=== PATIENT | male | born 1935 | race Caucasian/White ===

== ENCOUNTER 2019-03-02 06:12 | Inpatient (IN) ==
[~2019-03-02 06:12] MED LIST: ceFAZolin 1,000 MG, Sodium Chloride IRRigation 1,000 ML IR ONE
[2019-03-02] MEDS ORDERED: Acetaminophen IV 1,000 MG/100 ML INFUS..BTL IVPB ONE (07:03)
[2019-03-02] MEDS ORDERED: Famotidine 20 MG/2 ML VIAL IVP ONE (07:03)
[2019-03-02] MEDS ORDERED: Dexamethasone 4 MG/ML VIAL ONE (07:04)
[2019-03-02] MEDS ORDERED: *HR* Succinylcholine 200 MG/10 ML VIAL IVP ONE (07:04)
[2019-03-02] MEDS ORDERED: Lidocaine -MPF 4% 5 ML AMPUL ONE (07:04)
[2019-03-02] MEDS ORDERED: *HR* FentaNYL (PF) 100 MCG/2 ML VIAL ONE ×2 (07:04→10:33)
[2019-03-02] MEDS ORDERED: *HR* Propofol 200 MG/20 ML VIAL IVP ONE (07:04)
[2019-03-02] MEDS ORDERED: Lidocaine -MPF 2% 2 ML VIAL ONE ×2 (07:04→07:18)
[2019-03-02] MEDS ORDERED: Ondansetron 4 MG/2 ML VIAL ONE (07:04)
--- NOTE | 2019-03-02 07:08 | Anesthesia Evaluation PreOp ---
Date of Encounter: 03/02/19 Time of Encounter: 07:00 - Past History Planned Operation: Rt CEA Cardiac History: HTN, Hyperlipidemia, Cardiac Surgery (CABG 1991 and 2014), Cardiac Stent (2011), Pacemaker/ICD (Biventricular ICD 2014) Pulmonary History: Denies Any Significant HX [employer] History: Other (Neuropathy LE) Other Medical History: Renal (CKD Stage 3), Diabetes Type II Anesthesia History: No Prior Anesthetic Complications Alcohol Use: none Drug use: none Medications and Allergies Alogliptin Benzoate [Nesina] 12.5 mg PO BID 02/12/19 [History] Aspirin [Lo-Dose Aspirin EC] 81 mg PO DAILY 02/12/19 [History] Atorvastatin Calcium [Lipitor] 80 mg PO DAILY 02/12/19 [History] Carvedilol 12.5 mg PO BID 02/12/19 [History] Furosemide [Lasix] 40 mg PO BID 02/12/19 [History] GlipiZIDE [Glipizide Xl] 2 tab PO BID 02/12/19 [History] Magnesium Oxide [Magnesium] 400 mg PO BID 02/12/19 [History] Multivitamin [Multivitamins] 1 each PO DAILY 02/12/19 [History] Nitroglycerin [Nitrostat] 0.4 mg SL Q5M PRN 02/12/19 [History] Nortriptyline [Pamelor] 1 - 2 tab PO HS 02/12/19 [History] Pantoprazole Sodium 40 mg PO DAILY 02/12/19 [History] Potassium Chloride [Klor-Con 10] 10 meq PO DAILY 02/12/19 [History] Ropinirole HCl [Requip Xl] 2 mg PO BID 02/12/19 [History] Tamsulosin HCl [Flomax] 0.4 mg PO DAILY 02/12/19 [History] Tramadol HCl [Ultram] 50 mg PO QID PRN 02/12/19 [History] amLODIPine [Norvasc] 5 mg PO DAILY 02/12/19 [History] Allergy/AdvReac Type Severity Reaction Status Date / Time metformin AdvReac See Verified 03/02/19 07:11 Comments Penicillins [PCN] AdvReac Hives Verified 03/02/19 07:11 pregabalin [From Lyrica] AdvReac See Verified 03/02/19 07:11 Comments - Meds/Allergy Pre-op Review Medications Reviewed: Yes Allergies Reviewed: Yes Beta Blockers on Current Med List: Yes (Coreg today 0530) Anesthesia Results - Labs Laboratory Tests 02/01/19 02/01/19 13:27 13:27 Hgb 11.2 L Hct 34.0 L Plt Count 268 Sodium 134 L Potassium 4.3 BUN 23 Creatinine 1.58 H - Imaging EKG: report reviewed (Electronic Atrial and Ventricular Pacemaker) Anesthesia Exam O2 Sat Height 1.73 m Height 1.73 m Weight 92.986 kg Weight 92.986 kg O2 Sat by Pulse Oximetry 98 Vital Signs Temp Pulse Resp BP Pulse Ox 98.3 F 61 18 177/75 98 03/02/19 06:28 03/02/19 06:28 03/02/19 06:28 03/02/19 06:28 03/02/19 06:28 Height: 5'8 Weight: 204 lbs NPO (# of Hours): MN Pain Scale: 0 - HEENT Pupil (Motor): Pupils equal, EOMI Mallampati: III Teeth: Edentulous (no upper dentition) Oral Opening: Less than or equal to 3 - [employer] LOC: Oriented [employer] Motor: Normal RUE, Normal LUE, Normal RLE, Normal LLE, Normal Face [employer] Sensory: Normal: RUE, LUE, Face, Deficit: RLE, LLE (neuropathy) - Cardiac Rhythm: Regular Murmur: None JVD: No Carotid Bruit: No - Pulmonary Breath Sounds: bilateral Clear Respiratory Effort: Symmetrical Anesthesia Assess/Plan ASA Score: 4 (HTN Cardiomyopathy CKD DM) Level of consciousness: Cooperative, Oriented Anesthetic Plan: General Autologous Blood: No Monitoring Plan: Standard Monitors, A-Line Recovery Plan: PACU (Discussed GA, A-Line, agrees to proceed)
[2019-03-02] MEDS ORDERED: *HR* PHENYLEPHRINE 1,000 MCG/10 ML SYRINGE IVP ONE (07:12)
[2019-03-02] MEDS ORDERED: 0.9 % Sodium Chloride 1,000 ML IVC SCH (07:15)
[2019-03-02] MEDS ORDERED: Heparin 1,000 UNITS/500 mL 0 ML ONE (07:19)
[2019-03-02] MEDS ORDERED: Protamine Sulfate 50 MG/5 ML VIAL IVP ONE (07:20)
[2019-03-02] MEDS ORDERED: Heparin 1,000 UNITS/500 mL 1,000 ML ONE (07:20)
[2019-03-02] MEDS ORDERED: *HR* Remifentanil 2 MG VIAL IVP ONE (07:21)
[2019-03-02] MEDS ORDERED: NiCARdipine 2.5 MG/10 ML Syringe IVPB ONE (07:25)
[2019-03-02] MEDS ORDERED: *HR* Vasopressin 20 UNIT/ML VIAL ONE (07:25)
[2019-03-02] MEDS ORDERED: Nitroglycerin 25 MG/250 ML INFUS..BTL IVC ONE (07:25)
[2019-03-02] MEDS ORDERED: CeFAZolin Syr 2,000MG/20 ML 2,000 MG/20 ML SYRINGE IVPB ONE (07:32)
--- NOTE | 2019-03-02 08:02 | History & Physical Report ---
Date of Encounter: 03/02/19 Time of Encounter: 07:25 24 Hour HP Update - Instructions Instructions: If the History and Physical is less than 30 days old and was completed prior to A.M. admission and or procedure and has NOT been updated on calendar day of procedure please complete this update prior to performing procedure. - Update Patient reports changes in Medical Condition: No Changes in Medication: No Preop tests/diagnostics Reviewed: Yes Surgery Remains Indicated: Yes Consent for Planned Operative Procedure(s) Verified: Yes - Pre-Operative Checklist Preoperative Checklist Indicated: Yes Prophylactic Antibiotic Ordered: Yes Home Medications Include Beta Carole: Yes Beta Carole Taken Today (Day of Surgery): Yes Beta Carole Taken Yesterday (Day Prior to Surgery): Yes Is VTE Prophylaxis Indicated?: Yes
[2019-03-02] MEDS ORDERED: *HR* OxyCODONE Immed Rel 5 MG TABLET PO PRN (09:45)
[2019-03-02] MEDS ORDERED: Ondansetron 4 MG/2 ML VIAL IVP ONE (09:45)
[2019-03-02] MEDS ORDERED: Morphine Sulfate 2 MG/ML SYRINGE IVP PRN (09:45)
[2019-03-02] MEDS ORDERED: *HR* Labetalol 20 MG/4 ML SYRINGE IVP PRN ×2 (09:46→11:57)
--- NOTE | 2019-03-02 10:56 | Operative Note ---
Date of procedure: 03/02/19 Pre-op diagnosis: right carotid stenosis Post-op diagnosis: same Procedure: right carotid endarterectomy with bovine patch angioplasty with 8 Fr Shunt Complications: 0 Anesthesia: MAC Surgeon: Florentino Ball Was there an music library assistant present: No Estimated blood loss (cc): 50 Specimen: 0 Condition: stable Disposition: PACU Procedure in Detail: History Chato Glass is an 83-year-old white male who was found to have an abnormal physical exam and carotid duplex scan and was referred to vascular surgery for further evaluation. His duplex scan had indicated a critical stenosis of the right internal carotid artery and hemodynamically significant stenosis of the left internal carotid artery. He had not had a stroke. He does have a history of coronary artery disease and arrhythmias. A carotid angiogram was performed which demonstrated significant stenosis the patient now comes for surgery for the right carotid artery. Procedure After informed consent was obtained the patient was taken to the operating room. An arterial line was placed. General endotracheal anesthesia was established. The right neck was sterilely prepped and draped. A timeout protocol was observed. An incision was then made paralleling the anterior border of the sternocleidomastoid muscle. Dissection was carried down to reveal the carotid sheath. The sheath was opened. The nervous structures were identified and preserved. The carotid vessels are relatively small in diameter. Dissection was performed and selective control obtained of the carotid vessels. 5000 units of heparin was administered intravenously. After 3 minutes later the internal carotid artery was clamped first. The remaining vessels were then clamped. An 11 blade knife and Wright scissors were used to open the artery. An 8 [place] was then inserted atraumatically. Patency of the shunt was confirmed by the use of intraoperative Doppler. Evaluation of the vessel revealed significantly less plaque than predicted by both the angiogram and the duplex scan. Therefore it was judged to proceed directly to patch angioplasty of the proximal internal carotid artery and bulbar area to function as an endarterectomy. A bovine pericardial patch was selected and this was sewn into position using 2 6-0 Prolene sutures. Leaving a small space open on the suture line the shunt was clamped and divided and removed. The final few sutures were then placed. The internal carotid was allowed to backflush and was reclamped. The external and common were opened and finally the internal was reopened. There was no hemodynamic distress with this maneuver. Excellent pulsations and Doppler signa ls were identified throughout the carotid system. A superficial cervical block using half percent Marcaine was performed. The wound was irrigated with antibiotic-containing solution. The wound was then closed in layers using absorbable suture. Dry sterile dressing was applied. The patient was extubated in the operating room. He is found to be neurologically intact. He was then transported from the operating room to the recovery room in stable condition.
[2019-03-02] MEDS ORDERED: *HR* Labetalol 20 MG/4 ML SYRINGE IVP ONE (11:22)
--- NOTE | 2019-03-02 11:51 | Anesthesia Evaluation Post Op ---
Date of Encounter: 03/02/19 Time of Encounter: 12:00 - Vital Signs Vital Signs: Vital Signs/O2 Sat/Glucose, Most Current Temp Pulse Resp BP Pulse Ox 03/02/19 11:46 96.9 F L 62 12 162/73 97 03/02/19 11:36 97.0 F L 62 10 158/76 96 03/02/19 11:26 64 12 158/73 100 03/02/19 11:16 52 12 148/74 100 03/02/19 11:06 96.8 F L 63 12 146/69 99 - Lungs Lungs: Clear Ascult./Percussion - Airway Airway: Non-obstructed - Cardiovascular Regular Rate - Mental Status Mental Status: Alert & Oriented, Answers Appropriately - Pain Pain Scale: 0 - Nausea Vomiting Nausea Vomiting: Not Present - Hydration Hydration: Ice chips - Discharge PostOp Status: Transfer Patient to floor
[2019-03-02] MEDS ORDERED: Ondansetron 4 MG/2 ML VIAL IVP PRN (11:57)
[2019-03-02] MEDS ORDERED: Nitroglycerin 0.4 MG TAB.SUBL SL PRN (11:57)
[2019-03-02] MEDS ORDERED: Furosemide 40 MG TABLET PO PRN (11:57)
[2019-03-02] MEDS ORDERED: Naloxone 0.4 MG/ML INJ IVP PRN (11:57)
[2019-03-02] MEDS: traMADol 50 MG TABLET PO PRN ×2 (15:16→20:34)
[2019-03-02] MEDS: rOPINIRole 1 MG TABLET PO SCH (20:34)
[2019-03-02] MEDS: Magnesium Oxide 400 MG TABLET PO SCH (20:34)
[2019-03-03 05:59] LABS: Calcium 9.1 mg/dL (8.6-10.3); Potassium 4.7 mEq/L (3.5-5.1)
[2019-03-03] MEDS: rOPINIRole 1 MG TABLET PO SCH (07:31)
[2019-03-03] MEDS: Magnesium Oxide 400 MG TABLET PO SCH (07:32)
[2019-03-03] MEDS: traMADol 50 MG TABLET PO PRN (07:37)
[2019-03-03 07:58] VITALS: BP 171/78
--- NOTE | 2019-03-03 08:25 | Discharge Summary ---
Date of Encounter: 03/03/19 Time of Encounter: 08:23 - Discharge Diagnosis (1) Carotid stenosis Priority: Primary Status: Acute Comments: Patient was found to have bilateral carotid bruits and abnormal duplex scan. This led to a carotid artery angiogram. He was found have significant right carotid stenosis and was admitted for right carotid endarterectomy. Qualifiers: Laterality: bilateral Qualified Code(s): I65.23 - Occlusion and stenosis of bilateral carotid arteries (2) Diabetes Priority: Secondary Status: Chronic Comments: Patient has history of type 2 diabetes. Qualifiers: Diabetes mellitus type: type 2 Diabetes mellitus remote computer terminal operator insulin use: unspecified remote computer terminal operator insulin use status Diabetes mellitus complication status: without complication Qualified Code(s): E11.9 - Type 2 diabetes mellitus without complications (3) Hypertension Priority: Secondary Status: Chronic Comments: Patient has chronic hypertension Qualifiers: Hypertension type: essential hypertension Qualified Code(s): I10 - Essential (primary) hypertension (4) Hyperlipidemia Priority: Secondary Status: Chronic Comments: Patient has hyperlipidemia Qualifiers: Hyperlipidemia type: unspecified Qualified Code(s): E78.5 - Hyperlipidemia, unspecified - Hospital Course Hospital course: Mr. Glass is a 83 year old male With abnormal physical exam and duplex scan. This led to a carotid angiogram. Patient was found to have significant right carotid stenosis. He was admitted for right carotid endarterectomy. This was performed under general endotracheal anesthesia. The patient had no perioperative complications. Patient was felt fit for discharge on the morning of postoperative day #1. Instructions regard to his activity and wound care and medications were reviewed with the patient prior to discharge. All questions were answered. Patient wishes to follow-up at the [facility]. Patient is to follow-up in 2 weeks. - Time Spent with Patient Total time spent providing and/or coordinating discharge services: - Discharge Medications Prescriptions: No Action Magnesium Oxide [Magnesium] 400 mg PO BID Atorvastatin Calcium [Lipitor] 80 mg PO HS Pantoprazole Sodium 40 mg PO DAILY Potassium Chloride [Klor-Con 10] 10 meq PO DAILY Carvedilol 12.5 mg PO BID Nitroglycerin [Nitrostat] 0.4 mg SL Q5M PRN PRN Reason: Chest Pain Multivitamin [Multivitamins] 1 each PO DAILY Aspirin [Lo-Dose Aspirin EC] 81 mg PO DAILY Nortriptyline [Pamelor] 10 - 20 mg PO HS Tramadol HCl [Ultram] 50 mg PO TID PRN PRN Reason: Pain GlipiZIDE [Glipizide Xl] 5 tab PO DAILY Furosemide [Lasix] 40 mg PO BID PRN PRN Reason: Edema Lisinopril [Zestril] 5 mg PO DAILY Ropinirole HCl [Requip] 2 mg PO BID Home Medications: Aspirin [Lo-Dose Aspirin EC] 81 mg PO DAILY 02/12/19 [History] Atorvastatin Calcium [Lipitor] 80 mg PO HS 02/12/19 [History] Carvedilol 12.5 mg PO BID 02/12/19 [History] Furosemide [Lasix] 40 mg PO BID PRN 02/12/19 [History] GlipiZIDE [Glipizide Xl] 5 tab PO DAILY 02/12/19 [History] Magnesium Oxide [Magnesium] 400 mg PO BID 02/12/19 [History] Multivitamin [Multivitamins] 1 each PO DAILY 02/12/19 [History] Nitroglycerin [Nitrostat] 0.4 mg SL Q5M PRN 02/12/19 [History] Nortriptyline [Pamelor] 10 - 20 mg PO HS 02/12/19 [History] Pantoprazole Sodium 40 mg PO DAILY 02/12/19 [History] Potassium Chloride [Klor-Con 10] 10 meq PO DAILY 02/12/19 [History] Tramadol HCl [Ultram] 50 mg PO TID PRN 02/12/19 [History] Lisinopril [Zestril] 5 mg PO DAILY 03/02/19 [History] Ropinirole HCl [Requip] 2 mg PO BID 03/02/19 [History] Allergies/Adverse Reactions: Allergy/AdvReac Type Severity Reaction Status Date / Time metformin AdvReac See Verified 03/02/19 07:11 Comments Penicillins [PCN] AdvReac Hives Verified 03/02/19 07:11 pregabalin [From Lyrica] AdvReac See Verified 03/02/19 07:11 Comments Date of admission: 03/02/19 11:49 Primary care physician: Estefany Lou MD Consults: 03/02/19 12:30 Consult to Regional Sales Engineer [CONS] Routine Reason for SW Consult: d/c planning, patient taking care of who has dementia. Procedure(s) Performed: Right carotid endarterectomy with patch angioplasty Discharging clinician: Florentino Ball Anticipated date of discharge: 03/03/19 Exam Vital Signs, Last 4 Hours Temp Pulse Resp BP Pulse Ox 03/03/19 07:56 98.1 F 69 20 171/78 97 03/03/19 05:33 98.5 F 68 19 173/75 96 General: Present: Conversant, No Apparent Distress, Well developed, Well nourished HEENT: Present: Atraumatic, Normocephaly, Trachea midline Neck: Absent: JVD, Midline deformity, Tracheal deviation Cardiac: Present: Reg Rate and Rhythm, Normal S1 and S2 Lungs: Present: Normal Breath Sounds Neuro: Present: Alert and responsive, No focal deficits noted, Cranial nerves grossly intact Vascular: Present: Surgical incisions (Right neck incision is clean and dry.) Skin: Present: No rashes noted on visualized skin - Patient Status Disposition: Home, Self-Care Condition: Good Functional capacity at discharge: uses cane/walker Overall status at discharge: patient is progressing back to baseline - Discharge Instructions Follow Up With: Saritha Damian CNP [Advanced Practice Nurse] - 03/22/19 2:00 pm Florentino Ball MD [Partnered Physician] - 03/24/19 9:40 am Additional Instructions: Patient to resume usual home medications No lifting greater than 10 pounds. No manual labor. No automobile driving. Use ice pack on right neck for 48 hours at home. Patient to use [id number] medications for postoperative pain control. Keep right neck incision dry for a total of 5 days following surgery. - Diet and Activity Activity: increase activity as tolerated Diet: diabetic diet
[2019-03-03] MEDS ORDERED: *HR* GlipiZIDE XL (24 HR) 2.5 MG TABLET PO SCH (09:00)
[2019-03-03] MEDS ORDERED: Aspirin Enteric Coated 81 MG Tablet PO SCH (09:00)
[2019-03-03] MEDS ORDERED: Multivit/Ca/Min/Fe/FA 1 TAB TABLET PO SCH (09:00)
== END 2019-03-03 10:17 | disposition home or self-care (01) | DRG 38 ==
LOC: SAMDAY 06:12 → 2NNU 11:49
PROVIDERS: ADMIT Surgery Vascular Surgery; ATTEND Surgery Vascular Surgery

== ENCOUNTER 2020-08-21 15:04 | Inpatient (IN) ==
[2020-08-21] MEDS ORDERED: Naloxone 0.4 MG/ML INJ IVP PRN (18:40)
[2020-08-21] MEDS ORDERED: *HR* Dextrose 50 % in Water (Vial) 50 ML VIAL IVP PRN (18:48)
[2020-08-21] MEDS ORDERED: D5% in Water 1,000 ML IVC PRN (18:48)
[2020-08-21] MEDS ORDERED: Dextrose Gel 15 GM/37.5 ML TUBE PO PRN ×2 (18:48)
[2020-08-21] MEDS: Insulin LISPRO 300 UNITS/3 ML VIAL SUBQ SCH (20:40)
[2020-08-21] MEDS ORDERED: Perflutren Lipid Microsphere 1.3 ML in 0.9 % Sodium Chloride 8.7 ML IVP PRN (20:52)
[2020-08-21] MEDS: Acetaminophen 325 MG TABLET PO PRN (21:35)
[2020-08-22] MEDS: Ondansetron 4 MG/2 ML VIAL IVP PRN ×3 (01:55→16:51)
[2020-08-22 03:48] LABS: Basophils # 0.1 K/mcL (0.0-0.2); Eosinophils # 0.4 K/mcL (0.0-0.6); Eosinophils % 3.2 %; Hematocrit 35.5 % (37.5-50.1); Hemoglobin 11.5 g/dL (12.9-16.9); Immature Granulocytes % 0.8 % (0-4); Lymphocytes # 1.9 K/mcL (0.6-4.6); Lymphocytes % 16.8 %; Mean Corpuscular HGB Conc 32.4 g/dL (31.6-35.5); Mean Corpuscular Hemoglobin 31.3 pg (28.0-33.3); Mean Corpuscular Volume 96.7 fL (83.0-100.0); Mean Platelet Volume 9.9 fL (9.4-12.4); Monocytes % 9.3 %; Neutrophils # 7.6 K/mcL (1.6-8.9); Platelet Count 253 K/mcL (140-400); Red Blood Count 3.67 M/mcL (4.19-5.50); Red Cell Distribution Width 13.4 % (11.5-14.5); Segmented Neutrophils % 68.9 %; White Blood Count 11.1 K/mcL (4.3-11.1)
[2020-08-22] MEDS: Acetaminophen 325 MG TABLET PO PRN (03:57)
[2020-08-22] MEDS: Nitroglycerin 0.4 MG TAB.SUBL SL PRN ×4 (04:05→11:50)
[2020-08-22 04:06] LABS: INR 1.4; Prothrombin Time 15.5 Seconds (9.4-12.1)
[2020-08-22 04:09] LABS: Albumin 3.9 g/dL (3.5-5.7); Albumin/Globulin Ratio 1.3 (1.1-2.2); Bilirubin,Total 0.8 mg/dL (0.3-1.0); Calcium 9.5 mg/dL (8.6-10.3); Globulin 3.1 g/dL (2.4-3.5); Magnesium 1.9 mg/dL (1.6-2.6); Phosphorous 3.9 mg/dL (2.7-4.5); Potassium 4.3 mEq/L (3.5-5.1)
[2020-08-22 04:27] LABS: Thyroid Stimulating Hormone 4.512 mcIU/mL (0.340-5.600)
[2020-08-22] MEDS: Morphine Sulfate 2 MG/ML SYRINGE IVP PRN ×2 (05:01→11:44)
[2020-08-22] MEDS: Insulin LISPRO 300 UNITS/3 ML VIAL SUBQ SCH ×4 (08:42→20:19)
[2020-08-22 08:44] LABS: Estimated Average Glucose 189 mg/dl; Hemoglobin A1C 8.2 %
[2020-08-22] MEDS ORDERED: Furosemide 40 MG/4 ML VIAL IVP SCH (09:00)
[2020-08-22] MEDS ORDERED: *HR* Heparin 5,000 UNIT/ML VIAL IVP ONE (10:36)
[2020-08-22] MEDS ORDERED: *HR* Heparin 5,000 UNIT/ML VIAL IVP PRN (10:36)
[2020-08-22] MEDS ORDERED: Heparin 25,000UNIT/250ML 1/2NS 25,000 UNIT/250 ML IV.SOLN IVC SCH (10:45)
[2020-08-22] MEDS: carvediloL 6.25 MG TABLET PO SCH ×2 (11:12→16:51)
[2020-08-22] MEDS: Isosorbide MONOnitrate (24 HR) 30 MG TAB.ER.24H PO SCH (11:12)
[2020-08-22] MEDS: Heparin 25,000UNIT/250ML 1/2NS 25,000 UNIT/250 ML IV.SOLN IVC SCH (11:13)
[2020-08-22 11:38] LABS: Hematocrit 35.9 % (37.5-50.1); Hemoglobin 11.5 g/dL (12.9-16.9); Mean Corpuscular Hemoglobin 30.9 pg (28.0-33.3); Mean Corpuscular Volume 96.5 fL (83.0-100.0); Mean Platelet Volume 9.8 fL (9.4-12.4); Platelet Count 252 K/mcL (140-400); Red Blood Count 3.72 M/mcL (4.19-5.50); Red Cell Distribution Width 13.5 % (11.5-14.5); White Blood Count 12.5 K/mcL (4.3-11.1)
[2020-08-22 11:40] LABS: Heparin anti-factor XA UFH 0.48 IU/mL (0.30-0.70)
[2020-08-22 11:41] LABS: INR 1.3; Prothrombin Time 14.9 Seconds (9.4-12.1)
[2020-08-22] MEDS ORDERED: *HR* Metoprolol 5 MG/5 ML VIAL IVP ONE ×3 (11:50→20:34)
[2020-08-22] MEDS ORDERED: Nitroglycerin 0.4 MG TAB.SUBL SL PRN (13:58)
[2020-08-22] MEDS: Furosemide 40 MG/4 ML VIAL IVP SCH (19:58)
[2020-08-22] MEDS: Melatonin 3 MG TABLET PO PRN (23:08)
[2020-08-23 00:38] LABS: Hematocrit 31.5 % (37.5-50.1); Mean Corpuscular HGB Conc 31.7 g/dL (31.6-35.5); Mean Corpuscular Hemoglobin 31.4 pg (28.0-33.3); Mean Corpuscular Volume 99.1 fL (83.0-100.0); Platelet Count 226 K/mcL (140-400); Red Blood Count 3.18 M/mcL (4.19-5.50); Red Cell Distribution Width 13.3 % (11.5-14.5); White Blood Count 10.3 K/mcL (4.3-11.1)
[2020-08-23 00:53] LABS: Calcium 8.8 mg/dL (8.6-10.3); Magnesium 1.5 mg/dL (1.6-2.6); Potassium 4.4 mEq/L (3.5-5.1)
[2020-08-23 00:58] LABS: Troponin I 0.06 ng/mL (< 0.04)
[2020-08-23] MEDS: Insulin LISPRO 300 UNITS/3 ML VIAL SUBQ SCH ×4 (07:29→20:39)
[2020-08-23] MEDS: Furosemide 40 MG/4 ML VIAL IVP SCH ×2 (08:00→20:50)
[2020-08-23] MEDS: carvediloL 6.25 MG TABLET PO SCH (08:00)
[2020-08-23] MEDS: Isosorbide MONOnitrate (24 HR) 30 MG TAB.ER.24H PO SCH (08:00)
[2020-08-23] MEDS ORDERED: Amiodarone Premix 150 MG/100 ML BAG IVPB ONE (08:02)
[2020-08-23] MEDS ORDERED: Amiodarone Premix 360 MG/200 ML BAG IVC ONE (08:02)
[2020-08-23] MEDS: Metoprolol XL (24 HR) Succ 25 MG TAB.ER.24H PO SCH ×2 (08:32→20:51)
[2020-08-23] MEDS: Aspirin 81 MG TAB.CHEW PO SCH (10:34)
[2020-08-23] MEDS: *HR* Amiodarone 200 MG TABLET PO SCH ×2 (11:47→20:29)
[2020-08-23] MEDS: Amiodarone Premix 360 MG/200 ML BAG IVC SCH (15:16)
[2020-08-23] MEDS: Heparin 25,000UNIT/250ML 1/2NS 25,000 UNIT/250 ML IV.SOLN IVC SCH (16:35)
[2020-08-24 02:25] LABS: Hematocrit 31.7 % (37.5-50.1); Hemoglobin 9.9 g/dL (12.9-16.9); Mean Corpuscular HGB Conc 31.2 g/dL (31.6-35.5); Mean Corpuscular Hemoglobin 30.8 pg (28.0-33.3); Mean Corpuscular Volume 98.8 fL (83.0-100.0); Mean Platelet Volume 10.7 fL (9.4-12.4); Platelet Count 223 K/mcL (140-400); Red Blood Count 3.21 M/mcL (4.19-5.50); Red Cell Distribution Width 13.5 % (11.5-14.5); White Blood Count 10.1 K/mcL (4.3-11.1)
[2020-08-24 02:32] LABS: Calcium 8.6 mg/dL (8.6-10.3); Magnesium 1.4 mg/dL (1.6-2.6); Potassium 4.3 mEq/L (3.5-5.1)
[2020-08-24] MEDS: Isosorbide MONOnitrate (24 HR) 30 MG TAB.ER.24H PO SCH (07:49)
[2020-08-24] MEDS: Aspirin 81 MG TAB.CHEW PO SCH (07:49)
[2020-08-24] MEDS: Heparin 25,000UNIT/250ML 1/2NS 25,000 UNIT/250 ML IV.SOLN IVC SCH (07:50)
[2020-08-24] MEDS: Metoprolol XL (24 HR) Succ 25 MG TAB.ER.24H PO SCH ×2 (07:50→19:42)
[2020-08-24] MEDS: Furosemide 40 MG/4 ML VIAL IVP SCH ×2 (07:50→19:41)
[2020-08-24] MEDS: *HR* Amiodarone 200 MG TABLET PO SCH ×2 (07:50→19:43)
[2020-08-24] MEDS: Insulin LISPRO 300 UNITS/3 ML VIAL SUBQ SCH ×4 (07:51→19:44)
[2020-08-24] MEDS: Acetaminophen 325 MG TABLET PO PRN (07:59)
[2020-08-24] MEDS: Amiodarone Premix 360 MG/200 ML BAG IVC SCH (15:09)
[2020-08-24] MEDS: Ondansetron 4 MG/2 ML VIAL IVP PRN ×2 (18:46→21:15)
[2020-08-24] MEDS: Ipratropium/Albuterol Neb 3 ML IH PRN (23:25)
[2020-08-25] MEDS: Heparin 25,000UNIT/250ML 1/2NS 25,000 UNIT/250 ML IV.SOLN IVC SCH ×2 (00:24→23:00)
[2020-08-25] MEDS: *HR* Heparin 5,000 UNIT/ML VIAL IVP PRN ×2 (00:26→07:40)
[2020-08-25] MEDS: Melatonin 3 MG TABLET PO PRN (00:32)
[2020-08-25 02:21] LABS: Hemoglobin 10.3 g/dL (12.9-16.9); Mean Corpuscular HGB Conc 33.2 g/dL (31.6-35.5); Mean Corpuscular Volume 96.3 fL (83.0-100.0); Mean Platelet Volume 10.7 fL (9.4-12.4); Platelet Count 219 K/mcL (140-400); Red Blood Count 3.22 M/mcL (4.19-5.50); Red Cell Distribution Width 13.4 % (11.5-14.5)
[2020-08-25 02:34] LABS: Calcium 8.6 mg/dL (8.6-10.3); Potassium 4.3 mEq/L (3.5-5.1)
[2020-08-25] MEDS: Amiodarone Premix 360 MG/200 ML BAG IVC SCH (02:59)
[2020-08-25] MEDS: Acetaminophen 325 MG TABLET PO PRN ×2 (06:01→19:56)
[2020-08-25] MEDS: Furosemide 40 MG/4 ML VIAL IVP SCH (07:58)
[2020-08-25] MEDS: *HR* Amiodarone 200 MG TABLET PO SCH ×2 (07:58→21:34)
[2020-08-25] MEDS: Isosorbide MONOnitrate (24 HR) 30 MG TAB.ER.24H PO SCH (07:58)
[2020-08-25] MEDS: Metoprolol XL (24 HR) Succ 25 MG TAB.ER.24H PO SCH ×2 (07:59→19:55)
[2020-08-25] MEDS: Aspirin 81 MG TAB.CHEW PO SCH (07:59)
[2020-08-25] MEDS: Insulin LISPRO 300 UNITS/3 ML VIAL SUBQ SCH ×4 (08:02→21:31)
[2020-08-25 10:33] LABS: Magnesium 2.2 mg/dL (1.6-2.6)
[2020-08-25] MEDS: Ondansetron 4 MG/2 ML VIAL IVP PRN (13:49)
[2020-08-25] MEDS: Furosemide 40 MG TABLET PO SCH (18:23)
[2020-08-26] MEDS: Acetaminophen 325 MG TABLET PO PRN (02:46)
[2020-08-26 06:08] LABS: Calcium 9.3 mg/dL (8.6-10.3); Magnesium 1.9 mg/dL (1.6-2.6); Potassium 4.1 mEq/L (3.5-5.1)
[2020-08-26] MEDS: *HR* Amiodarone 200 MG TABLET PO SCH ×2 (07:31→19:49)
[2020-08-26] MEDS: Metoprolol XL (24 HR) Succ 25 MG TAB.ER.24H PO SCH ×2 (07:31→19:48)
[2020-08-26] MEDS: Ipratropium/Albuterol Neb 3 ML IH PRN (07:32)
[2020-08-26] MEDS: Isosorbide MONOnitrate (24 HR) 30 MG TAB.ER.24H PO SCH (07:33)
[2020-08-26] MEDS: Aspirin 81 MG TAB.CHEW PO SCH (07:34)
[2020-08-26] MEDS: Furosemide 40 MG TABLET PO SCH ×2 (07:34→16:25)
[2020-08-26] MEDS: Insulin LISPRO 300 UNITS/3 ML VIAL SUBQ SCH ×4 (07:34→19:55)
[2020-08-26] MEDS ORDERED: Insulin DETEMIR 100 UNIT/ML X5UNITS SUBQ SCH (09:00)
[2020-08-26] MEDS: Ondansetron 4 MG/2 ML VIAL IVP PRN (11:14)
[2020-08-26] MEDS: Heparin 25,000UNIT/250ML 1/2NS 25,000 UNIT/250 ML IV.SOLN IVC SCH (14:58)
[2020-08-26] MEDS ORDERED: Prochlorperazine 10 MG/2 ML VIAL IVP ONE (17:19)
[2020-08-27] MEDS ORDERED: Cefepime HCl 2,000 MG in Water for inj. (sterile) 20 ML IVP SCH
[2020-08-27 04:06] LABS: Hematocrit 32.6 % (37.5-50.1); Hemoglobin 10.7 g/dL (12.9-16.9); Mean Corpuscular HGB Conc 32.8 g/dL (31.6-35.5); Mean Corpuscular Volume 94.5 fL (83.0-100.0); Mean Platelet Volume 9.9 fL (9.4-12.4); Platelet Count 277 K/mcL (140-400); Red Blood Count 3.45 M/mcL (4.19-5.50); Red Cell Distribution Width 13.4 % (11.5-14.5); White Blood Count 13.5 K/mcL (4.3-11.1)
[2020-08-27 04:25] LABS: Calcium 9.4 mg/dL (8.6-10.3); Magnesium 1.7 mg/dL (1.6-2.6); Potassium 4.1 mEq/L (3.5-5.1)
[2020-08-27] MEDS: Insulin DETEMIR 100 UNIT/ML X5UNITS SUBQ SCH (07:21)
[2020-08-27] MEDS: Insulin LISPRO 300 UNITS/3 ML VIAL SUBQ SCH ×4 (07:21→20:43)
[2020-08-27] MEDS: Metoprolol XL (24 HR) Succ 25 MG TAB.ER.24H PO SCH ×2 (07:21→20:43)
[2020-08-27] MEDS: Aspirin 81 MG TAB.CHEW PO SCH (07:21)
[2020-08-27] MEDS: Isosorbide MONOnitrate (24 HR) 30 MG TAB.ER.24H PO SCH (07:21)
[2020-08-27] MEDS: Furosemide 40 MG TABLET PO SCH ×2 (07:22→16:56)
[2020-08-27] MEDS: *HR* Amiodarone 200 MG TABLET PO SCH ×2 (07:22→20:43)
[2020-08-27] MEDS: lisinopriL 5 MG TABLET PO SCH (10:08)
[2020-08-27] MEDS: Methyl Salicylate/Menthol 57 APPL/57 GM TUBE TP PRN (13:03)
[2020-08-27 18:01] LABS: % Iron Saturation 9 % (20-55); Iron 29 mcg/dL (65-175); Transferrin 232 mg/dL (203-362)
[2020-08-27 19:14] LABS: Ferritin 140 ng/mL (20-250)
[2020-08-28] MEDS: Melatonin 3 MG TABLET PO PRN (00:21)
[2020-08-28] MEDS: Heparin 25,000UNIT/250ML 1/2NS 25,000 UNIT/250 ML IV.SOLN IVC SCH (03:19)
[2020-08-28 05:09] LABS: Calcium 9.1 mg/dL (8.6-10.3); Magnesium 1.6 mg/dL (1.6-2.6); Potassium 4.1 mEq/L (3.5-5.1)
[2020-08-28] MEDS: *HR* Heparin 5,000 UNIT/ML VIAL IVP PRN (06:03)
[2020-08-28] MEDS: lisinopriL 5 MG TABLET PO SCH (07:38)
[2020-08-28] MEDS: Aspirin 81 MG TAB.CHEW PO SCH (07:38)
[2020-08-28] MEDS: *HR* Amiodarone 200 MG TABLET PO SCH (07:39)
[2020-08-28] MEDS: Metoprolol XL (24 HR) Succ 25 MG TAB.ER.24H PO SCH (07:39)
[2020-08-28] MEDS: Isosorbide MONOnitrate (24 HR) 30 MG TAB.ER.24H PO SCH (07:39)
[2020-08-28] MEDS: Furosemide 40 MG TABLET PO SCH (07:39)
[2020-08-28] MEDS: Insulin LISPRO 300 UNITS/3 ML VIAL SUBQ SCH ×2 (07:40→11:49)
[2020-08-28] MEDS: Methyl Salicylate/Menthol 57 APPL/57 GM TUBE TP PRN (07:41)
[2020-08-28] MEDS: Insulin DETEMIR 100 UNIT/ML X5UNITS SUBQ SCH (07:43)
[2020-08-28] MEDS: Acetaminophen 325 MG TABLET PO PRN (07:49)
[2020-08-28 09:58] VITALS: BP 107/64
[2020-08-28] MEDS ORDERED: Apixaban 2.5 MG TABLET PO SCH (10:15)
== END 2020-08-28 16:33 | disposition home health service (06) | DRG 280 ==
LOC: 2NNU → SUATTDRO 08-22 14:13
PROVIDERS: ADMIT Internal Medicine; ATTEND Internal Medicine